=== PATIENT | female | born 1985 | race Caucasian/White ===

== ENCOUNTER 2023-10-15 18:07 | Emergency (ER) | payer OTHER ==
[~2023-10-15] VITALS: Ht 152.4 cm; Wt 167.7 kg
[2023-10-15 18:23] VITALS: TEMP 98
[2023-10-15] MEDS: MORPHINE 4 MG/ML 1ML VIAL IV ONE (19:58)
[2023-10-15] MEDS: MORPHINE 4 MG/ML 1ML VIAL IV PRN (20:53)
[2023-10-15] MEDS: PERCOCET 5MG/325MG TAB PO ONE (22:36)
[2023-10-15] MEDS ORDERED: PERC5TAB12 PO (23:52)
[2023-10-16] VITALS: BP 103/57; O2SAT 97
[2023-10-16] MEDS: OXYCODONE/APAP 5MG/325MG(HOME DOSE PACK) PO ONE (00:19)
[2023-10-20] MEDS ORDERED: LEVO100T5 PO (13:57)
[2023-10-20] MEDS ORDERED: THERTAB52 PO (13:57)
[2023-10-20] MEDS ORDERED: CALC500C16 PO (13:57)
[2023-10-20] MEDS ORDERED: SEMA2PEN SQ (14:00)
[2023-10-20] MEDS ORDERED: SUMA100T2 PO (14:03)
== END 2023-10-16 01:00 | disposition home or self-care (01) ==
LOC: M ED 18:07
DX: S42.352A Displaced comminuted fracture of shaft of humerus, left arm, initial encounter for closed fracture (principal); W18.2XXA Fall in (into) shower or empty bathtub, initial encounter; Z91.040 Latex allergy status; Z91.013 Allergy to seafood; Z88.8 Allergy status to other drugs, medicaments and biological substances; Z91.048 Other nonmedicinal substance allergy status; Z79.899 Other long term (current) drug therapy; Y92.002 Bathroom of unspecified non-institutional (private) residence as the place of occurrence of the external cause; Y93.89 Activity, other specified; Y99.9 Unspecified external cause status

== ENCOUNTER → 2023-10-19 | Outpatient (CLI) | payer OTHER ==
[~2023-10-19] MED LIST: CALC500C16 PO; LEVO100T5 PO; PERC5TAB12 PO; SEMA2PEN SQ; SUMA100T2 PO; THERTAB52 PO
== END ==
LOC: M SOG 07:51
PROVIDERS: ATTEND Orthopaedic Surgery
DX: M79.622 Pain in left upper arm (principal)

== ENCOUNTER → 2023-10-19 | Outpatient (CLI) | payer OTHER, MEDICAID ==
[~2023-10-19] MED LIST changes: +ALPR0.5T3 PO; +DESV50TA PO; +DEXM1CAP3 PO; +GABA-282 PO; +PERCOCET PO
[2023-10-19 12:39] LABS: BASO # 0.1 10^3/uL (0.0-0.2); BASO % 0.5 % (0.0-1.0); EOS # 0.2 10^3/uL (0.0-0.5); EOS % 1.5 % (0.0-3.0); HEMATOCRIT 45.4 % (36.0-47.0); HEMOGLOBIN 14.4 g/dl (12.0-15.5); LYMPH # 2.4 10^3/uL (1.5-5.0); LYMPH % 18.7 % (24.0-44.0); MEAN CORPUSCULAR HEMOGLOBIN 27.5 pg (27.0-33.0); MEAN CORPUSCULAR HGB CONC 31.7 g/dl (32.0-36.5); MEAN CORPUSCULAR VOLUME 86.6 fl (80.0-96.0); MONO # 0.7 10^3/uL (0.0-0.8); MONO % 5.5 % (2.0-8.0); NEUTROPHILS # 9.6 10^3/uL (1.5-8.5); NEUTROPHILS % 73.6 % (36.0-66.0); PLATELET COUNT, AUTOMATED 298 10^3/uL (150-450); RED BLOOD COUNT 5.24 10^6/uL (4.00-5.40)
[2023-10-19 12:57] LABS: INR 1.03; PROTHROMBIN TIME 13.2 SECONDS (12.5-14.5)
[2023-10-19 13:08] LABS: ALBUMIN 3.4 G/DL (3.2-5.2); ALKALINE PHOSPHATASE 160 U/L (46-116); ALT/SGPT 51 U/L (7.0-40); AST/SGOT 35 U/L (<34); BILIRUBIN,TOTAL 0.5 MG/DL (0.3-1.2); BLOOD UREA NITROGEN 10 MG/DL (9-23); CALCIUM LEVEL 8.9 MG/DL (8.5-10.1); CARBON DIOXIDE LEVEL 28 MMOL/L (20-31); CHLORIDE LEVEL 106 MMOL/L (98-107); GLOMERULAR FILTRATION RATE > 60.0 (>60); GLUCOSE, FASTING 112 MG/DL (60-100); POTASSIUM SERUM 4.1 MMOL/L (3.5-5.1); SODIUM LEVEL 136 MMOL/L (136-145); TOTAL PROTEIN 7.6 G/DL (5.7-8.2)
[2023-10-19 13:11] LABS: TOTAL 25(OH) VITAMIN D 25.7 NG/ML (20.0-100.0)
[2023-10-19 13:13] LABS: HEMOGLOBIN A1c 4.8 % (4.0-6.0)
== END ==
LOC: M PLALAB 10:35
PROVIDERS: ATTEND Orthopaedic Surgery
DX: S42.302A Unspecified fracture of shaft of humerus, left arm, initial encounter for closed fracture (principal); Y93.9 Activity, unspecified; Y92.9 Unspecified place or not applicable

== ENCOUNTER 2023-10-21 08:18 | Observation (INO) | payer OTHER, MEDICAID ==
[~2023-10-21] VITALS: Ht 152.4 cm; Wt 169.6 kg
[~2023-10-21 08:18] MED LIST changes: -ALPR0.5T3 PO; -DESV50TA PO; -DEXM1CAP3 PO; -GABA-282 PO; -PERCOCET PO
[2023-10-21] MEDS: MULTIVITAMINS/MINERALS THERAP 1 TAB PO SCH (09:00)
[2023-10-21] MEDS: SENOKOT S TAB PO SCH (09:00)
[2023-10-21] MEDS: MORPHINE 4 MG/ML 1ML VIAL IV ONE (10:10)
[2023-10-21] MEDS: ACETAMINOPHEN *IV* 1,000 MG in IV 1 EA IV ONE (10:11)
[2023-10-21 10:42] LABS: BASO # 0.1 10^3/uL (0.0-0.2); BASO % 0.6 % (0.0-1.0); EOS # 0.2 10^3/uL (0.0-0.5); EOS % 1.8 % (0.0-3.0); HEMOGLOBIN 13.9 g/dl (12.0-15.5); LYMPH % 19.6 % (24.0-44.0); MEAN CORPUSCULAR HEMOGLOBIN 27.9 pg (27.0-33.0); MEAN CORPUSCULAR HGB CONC 32.3 g/dl (32.0-36.5); MEAN CORPUSCULAR VOLUME 86.3 fl (80.0-96.0); MONO # 0.6 10^3/uL (0.0-0.8); MONO % 6.1 % (2.0-8.0); NEUTROPHILS # 7.3 10^3/uL (1.5-8.5); NEUTROPHILS % 71.2 % (36.0-66.0); PLATELET COUNT, AUTOMATED 271 10^3/uL (150-450); RED BLOOD COUNT 4.98 10^6/uL (4.00-5.40); WHITE BLOOD COUNT 10.3 10^3/uL (4.0-10.0)
[2023-10-21] MEDS ORDERED: DEXM1CAP3 PO (10:56)
[2023-10-21] MEDS ORDERED: DESV50TA PO (10:56)
[2023-10-21] MEDS ORDERED: PERCOCET PO (10:56)
[2023-10-21] MEDS ORDERED: ALPR0.5T3 PO (10:56)
[2023-10-21] MEDS ORDERED: GABA-1172 PO (10:56)
[2023-10-21] MEDS ORDERED: HOME MED LIST COMPLETE! XX SCH (11:00)
[2023-10-21 11:11] LABS: ALBUMIN 3.1 G/DL (3.2-5.2); ALKALINE PHOSPHATASE 147 U/L (46-116); ALT/SGPT 37 U/L (7.0-40); AST/SGOT 23 U/L (<34); BILIRUBIN,TOTAL 0.5 MG/DL (0.3-1.2); BLOOD UREA NITROGEN 12 MG/DL (9-23); CALCIUM LEVEL 8.3 MG/DL (8.5-10.1); CARBON DIOXIDE LEVEL 29 MMOL/L (20-31); CHLORIDE LEVEL 106 MMOL/L (98-107); CREATININE FOR GFR 0.61 MG/DL (0.55-1.30); GLOMERULAR FILTRATION RATE > 60.0 (>60); GLUCOSE, FASTING 97 MG/DL (60-100); MAGNESIUM LEVEL 1.9 MG/DL (1.8-2.4); POTASSIUM SERUM 4.2 MMOL/L (3.5-5.1); SODIUM LEVEL 138 MMOL/L (136-145); THYROID STIMULATING HORMONE 4.086 uIU/ML (0.55-4.78); TOTAL PROTEIN 6.9 G/DL (5.7-8.2)
[2023-10-21] MEDS ORDERED: SUMAtriptan SUCCINATE 25 MG TAB PO SCH (11:15)
[2023-10-21 11:26] LABS: INR 0.99; PARTIAL THROMBOPLASTIN TIME 28.3 SECONDS (24.8-34.2); PROTHROMBIN TIME 12.8 SECONDS (12.5-14.5)
[2023-10-21] MEDS: oxyCODONE 5MG TAB PO PRN (12:04)
[2023-10-21] MEDS: DESVENLAFAXINE ER 50MG TABLET (PRISTIQ) PO SCH (12:04)
[2023-10-21] MEDS: GABAPENTIN 300 MG CAP PO SCH ×2 (12:04→17:39)
[2023-10-21] MEDS: MORPHINE 2 MG/ML 1ML VIAL IV PRN (15:05)
[2023-10-21 15:25] VITALS: BP 134/76; TEMP 97.2; O2SAT 98
[2023-10-21 18:46] LABS: URINE PREG TEST NEGATIVE (NEGATIVE)
[2023-10-21] MEDS: ONDANSETRON 4MG 2ML VIAL IV PRN (19:13)
[2023-10-21 19:35] VITALS: BP 133/77; TEMP 97; O2SAT 99
[2023-10-22] VITALS (8 sets, daily range): BP systolic 125–134; BP diastolic 75–77; TEMP 97–97.4; O2SAT 96–99
[2023-10-22] MEDS: NS 1,000 ML IV SCH (01:51)
[2023-10-22] MEDS ORDERED: LEVOTHYROXINE 100MCG TABLET (0.1MG) PO SCH (06:00)
[2023-10-22] MEDS: LEVOTHYROXINE 100MCG TABLET (0.1MG) PO SCH (06:16)
[2023-10-22] MEDS: ACETAMINOPHEN TAB 650MG DOSE (2X325MG) PO ONE (08:04)
[2023-10-22 08:23] LABS: BASO % 0.4 % (0.0-1.0); EOS # 0.3 10^3/uL (0.0-0.5); EOS % 2.6 % (0.0-3.0); HEMATOCRIT 38.6 % (36.0-47.0); HEMOGLOBIN 12.3 g/dl (12.0-15.5); LYMPH # 2.5 10^3/uL (1.5-5.0); LYMPH % 25.7 % (24.0-44.0); MEAN CORPUSCULAR HEMOGLOBIN 27.5 pg (27.0-33.0); MEAN CORPUSCULAR HGB CONC 31.9 g/dl (32.0-36.5); MEAN CORPUSCULAR VOLUME 86.4 fl (80.0-96.0); MONO # 0.5 10^3/uL (0.0-0.8); MONO % 5.2 % (2.0-8.0); NEUTROPHILS # 6.3 10^3/uL (1.5-8.5); NEUTROPHILS % 65.8 % (36.0-66.0); PLATELET COUNT, AUTOMATED 253 10^3/uL (150-450); RED BLOOD COUNT 4.47 10^6/uL (4.00-5.40); WHITE BLOOD COUNT 9.6 10^3/uL (4.0-10.0)
[2023-10-22 08:44] LABS: BLOOD UREA NITROGEN 9 MG/DL (9-23); CALCIUM LEVEL 8.4 MG/DL (8.5-10.1); CARBON DIOXIDE LEVEL 29 MMOL/L (20-31); CHLORIDE LEVEL 106 MMOL/L (98-107); CREATININE FOR GFR 0.57 MG/DL (0.55-1.30); GLOMERULAR FILTRATION RATE > 60.0 (>60); GLUCOSE, FASTING 78 MG/DL (60-100); POTASSIUM SERUM 3.8 MMOL/L (3.5-5.1); SODIUM LEVEL 138 MMOL/L (136-145)
[2023-10-22] MEDS ORDERED: DEXMETHYLPHENIDATE 15 MG PO SCH (09:00)
[2023-10-22] MEDS ORDERED: fentaNYL 100 MCG/2 ML INJECTION ONE (10:36)
[2023-10-22] MEDS ORDERED: LIDOCAINE 2% 100MG/5ML SDV (FOR ANES.) ONE (10:36)
[2023-10-22] MEDS ORDERED: SUCCINYLCHOLINE 100MG/5ML SYRINGE ONE (10:36)
[2023-10-22] MEDS ORDERED: ROCURONIUM BROMIDE 50MG/5ML VIAL ONE ×3 (10:36→14:14)
[2023-10-22] MEDS ORDERED: propofoL 200 MG/20 ML VIAL ONE ×2 (10:36→13:36)
[2023-10-22] MEDS ORDERED: ACETAMINOPHEN 1000MG/100ML IV BAG ONE (10:37)
[2023-10-22] MEDS: EPINEPHrine INJ 1 MG/ML 1ML AMP PN ONE (11:45)
[2023-10-22] MEDS: ROPIvacaine 0.5% 30ML VIAL PN ONE (11:45)
[2023-10-22] MEDS: LIDOCAINE 1% SDV 5ML VIAL PN ONE (11:45)
[2023-10-22] MEDS: fentaNYL 100 MCG/2 ML INJECTION IV PRN ×2 (12:03→16:08)
[2023-10-22] MEDS: MIDAZOLAM INJ 2MG/2ML VIAL IV PRN (12:05)
[2023-10-22] MEDS: MIDAZOLAM INJ 2MG/2ML VIAL IV ONE (12:24)
[2023-10-22] MEDS ORDERED: KETAMINE HCL 200MG/20ML VIAL ONE (12:36)
[2023-10-22] MEDS: ceFAZolin 2 GM/D5W 50 ML IV BAG As Ordered ONE (13:00)
[2023-10-22] MEDS: ceFAZolin 1GM VIAL As Ordered ONE (13:00)
[2023-10-22] MEDS ORDERED: KETOROLAC 60MG 2ML VIAL ONE (14:33)
[2023-10-22] MEDS ORDERED: SUGAMMADEX SODIUM 500 MG/5 ML VIAL (BRIDION) ONE (14:33)
[2023-10-22] MEDS ORDERED: ONDANSETRON 4MG 2ML VIAL ONE (14:33)
[2023-10-22] MEDS: LR 1,000 ML IV SCH (15:10)
[2023-10-22] MEDS ORDERED: ONDANSETRON 4MG 2ML VIAL IV PRN (15:10)
[2023-10-22] MEDS ORDERED: MORPHINE 2 MG/ML 1ML VIAL IV PRN (15:20)
[2023-10-22] MEDS: HYDROMORPHONE HCL 0.5 MG/ 0.5 ML SYRINGE IV PRN (15:30)
[2023-10-22] MEDS: oxyCODONE 5MG TAB PO PRN (17:20)
[2023-10-22] MEDS: ceFAZolin SOD 2 GM in IV 1 EA IV SCH (20:31)
[2023-10-22] MEDS: ACETAMINOPHEN TAB 650MG DOSE (2X325MG) PO PRN (20:31)
[2023-10-22] MEDS: ALPRAZolam 0.5 MG TAB PO PRN (22:26)
[2023-10-23] MEDS: LIDOCAINE 5% (LIDODERM) PATCH TD SCH (00:25)
[2023-10-23] MEDS: METHOCARBAMOL 1,000 MG/10 ML VIAL IM ONE (00:58)
[2023-10-23] MEDS: KETOROLAC 60MG 2ML VIAL IM ONE (00:59)
[2023-10-23 02:50] VITALS: BP 132/74; TEMP 97; O2SAT 98
[2023-10-23 05:43] LABS: BASO % 0.3 % (0.0-1.0); EOS # 0.2 10^3/uL (0.0-0.5); HEMATOCRIT 34.9 % (36.0-47.0); HEMOGLOBIN 11.1 g/dl (12.0-15.5); LYMPH % 20.2 % (24.0-44.0); MEAN CORPUSCULAR HEMOGLOBIN 27.6 pg (27.0-33.0); MEAN CORPUSCULAR HGB CONC 31.8 g/dl (32.0-36.5); MEAN CORPUSCULAR VOLUME 86.8 fl (80.0-96.0); MONO # 0.7 10^3/uL (0.0-0.8); MONO % 6.7 % (2.0-8.0); NEUTROPHILS # 7.1 10^3/uL (1.5-8.5); NEUTROPHILS % 70.4 % (36.0-66.0); PLATELET COUNT, AUTOMATED 228 10^3/uL (150-450); RED BLOOD COUNT 4.02 10^6/uL (4.00-5.40); WHITE BLOOD COUNT 10.1 10^3/uL (4.0-10.0)
[2023-10-23 06:02] LABS: BLOOD UREA NITROGEN 8 MG/DL (9-23); CALCIUM LEVEL 7.8 MG/DL (8.5-10.1); CARBON DIOXIDE LEVEL 26 MMOL/L (20-31); CHLORIDE LEVEL 111 MMOL/L (98-107); CREATININE FOR GFR 0.52 MG/DL (0.55-1.30); GLOMERULAR FILTRATION RATE > 60.0 (>60); GLUCOSE, FASTING 108 MG/DL (60-100); POTASSIUM SERUM 3.9 MMOL/L (3.5-5.1); SODIUM LEVEL 141 MMOL/L (136-145)
[2023-10-23 08:00] VITALS: BP 133/85; TEMP 96.8; O2SAT 96
[2023-10-23] MEDS: methocarbamoL 500 MG TAB PO PRN (10:24)
[2023-10-23] MEDS: PERCOCET 5MG/325MG TAB PO PRN (10:26)
[2023-10-23 12:00] VITALS: BP 123/73; TEMP 97; O2SAT 96
[2023-10-23] MEDS: MULTIVITAMINS/MINERALS THERAP 1 TAB PO SCH (12:25)
[2023-10-23 20:00] VITALS: BP 119/70; TEMP 97.2; O2SAT 96
[2023-10-23] MEDS: CEFDINIR 300 MG CAP (OMNICEF) PO SCH (20:25)
[2023-10-24 04:00] VITALS: BP 120/71; TEMP 97.2; O2SAT 98
[2023-10-24 07:18] LABS: BASO # 0.1 10^3/uL (0.0-0.2); BASO % 0.6 % (0.0-1.0); EOS # 0.3 10^3/uL (0.0-0.5); HEMATOCRIT 35.2 % (36.0-47.0); HEMOGLOBIN 10.9 g/dl (12.0-15.5); LYMPH # 2.5 10^3/uL (1.5-5.0); LYMPH % 28.9 % (24.0-44.0); MEAN CORPUSCULAR HEMOGLOBIN 27.3 pg (27.0-33.0); MEAN CORPUSCULAR VOLUME 88.2 fl (80.0-96.0); MONO # 0.5 10^3/uL (0.0-0.8); MONO % 6.3 % (2.0-8.0); NEUTROPHILS # 5.1 10^3/uL (1.5-8.5); PLATELET COUNT, AUTOMATED 240 10^3/uL (150-450); RED BLOOD COUNT 3.99 10^6/uL (4.00-5.40); WHITE BLOOD COUNT 8.5 10^3/uL (4.0-10.0)
[2023-10-24 07:43] LABS: BLOOD UREA NITROGEN 10 MG/DL (9-23); CALCIUM LEVEL 7.9 MG/DL (8.5-10.1); CARBON DIOXIDE LEVEL 28 MMOL/L (20-31); CHLORIDE LEVEL 109 MMOL/L (98-107); CREATININE FOR GFR 0.59 MG/DL (0.55-1.30); GLOMERULAR FILTRATION RATE > 60.0 (>60); GLUCOSE, FASTING 93 MG/DL (60-100); SODIUM LEVEL 142 MMOL/L (136-145)
[2023-10-24 07:55] VITALS: BP 117/69; TEMP 97; O2SAT 96
[2023-10-24] MEDS: UNRESOLVED NON-FORMULARY MED ORDER XX SCH (08:11)
[2023-10-24 12:01] VITALS: BP 130/92; TEMP 97; O2SAT 96
[2023-10-24 20:00] VITALS: BP 127/76; TEMP 97.4; O2SAT 95
[2023-10-24] MEDS: RAMELTEON 8 MG TAB (ROZEREM) PO PRN (22:39)
[2023-10-25 04:24] VITALS: BP 104/68; TEMP 96.9; O2SAT 95
[2023-10-25 06:06] LABS: BASO % 0.3 % (0.0-1.0); EOS # 0.3 10^3/uL (0.0-0.5); EOS % 3.6 % (0.0-3.0); HEMATOCRIT 34.4 % (36.0-47.0); HEMOGLOBIN 11.1 g/dl (12.0-15.5); LYMPH # 2.4 10^3/uL (1.5-5.0); MEAN CORPUSCULAR HEMOGLOBIN 27.9 pg (27.0-33.0); MEAN CORPUSCULAR HGB CONC 32.3 g/dl (32.0-36.5); MEAN CORPUSCULAR VOLUME 86.4 fl (80.0-96.0); MONO # 0.5 10^3/uL (0.0-0.8); MONO % 5.7 % (2.0-8.0); NEUTROPHILS # 5.7 10^3/uL (1.5-8.5); NEUTROPHILS % 63.1 % (36.0-66.0); PLATELET COUNT, AUTOMATED 237 10^3/uL (150-450); RED BLOOD COUNT 3.98 10^6/uL (4.00-5.40)
[2023-10-25 06:27] LABS: BLOOD UREA NITROGEN 8 MG/DL (9-23); CALCIUM LEVEL 8.1 MG/DL (8.5-10.1); CARBON DIOXIDE LEVEL 28 MMOL/L (20-31); CHLORIDE LEVEL 109 MMOL/L (98-107); CREATININE FOR GFR 0.55 MG/DL (0.55-1.30); GLOMERULAR FILTRATION RATE > 60.0 (>60); GLUCOSE, FASTING 90 MG/DL (60-100); SODIUM LEVEL 140 MMOL/L (136-145)
[2023-10-25] MEDS: UNRESOLVED PATIENT OWN MED ORDER XX SCH (07:21)
[2023-10-25 12:00] VITALS: BP 99/64; TEMP 96.8; O2SAT 96
[2023-10-25] MEDS ORDERED: RAME8TAB2 PO (13:17)
[2023-10-25] MEDS ORDERED: LIDO5TD TD (13:17)
[2023-10-25] MEDS ORDERED: CEFD300CAP PO (13:17)
[2023-10-25] MEDS ORDERED: SENN-52 PO (13:17)
[2023-10-25] MEDS ORDERED: PERCOCET PO (13:17)
== END 2023-10-25 14:06 | disposition home or self-care (01) ==
LOC: M ED 08:18 → M ED INP 08:19 → UNDOADMOB 08:19 → M MSPAV 15:29
PROVIDERS: ADMIT Orthopaedic Surgery; ATTEND Internal Medicine
DX: S42.302A Unspecified fracture of shaft of humerus, left arm, initial encounter for closed fracture (principal); W18.2XXA Fall in (into) shower or empty bathtub, initial encounter; Y92.002 Bathroom of unspecified non-institutional (private) residence as the place of occurrence of the external cause; Y93.E1 Activity, personal bathing and showering; E03.9 Hypothyroidism, unspecified; G43.909 Migraine, unspecified, not intractable, without status migrainosus; Z98.84 Bariatric surgery status; K50.90 Crohn's disease, unspecified, without complications; Z91.040 Latex allergy status; Z91.013 Allergy to seafood; G47.33 Obstructive sleep apnea (adult) (pediatric); Z79.899 Other long term (current) drug therapy; Z88.5 Allergy status to narcotic agent; Z88.8 Allergy status to other drugs, medicaments and biological substances; Z86.73 Personal history of transient ischemic attack (TIA), and cerebral infarction without residual deficits; F41.9 Anxiety disorder, unspecified; F32.A Depression, unspecified; F43.10 Post-traumatic stress disorder, unspecified; E66.01 Morbid (severe) obesity due to excess calories
CPT/HCPCS: 24516; 36415; 64415; 71045; 73060; 76000; 80048; 80053; 83735; 84443; 84703; 85025; 85610; 85730; 86850; 86900; 86901; 93005; 96365; 96366; 96372; 96375; 96376; 97116; 97161; 97165; 97530; 97535; 99284; C1713; C1769; C9290; J0131; J0330; J0665; J0690; J0744; J1170; J1885; J2250; J2405; J2800; J3010

== ENCOUNTER → 2023-10-30 | Outpatient (CLI) | payer OTHER, MEDICAID ==
[~2023-10-30] MED LIST changes: +ALPR0.5T3 PO; +CEFD300CAP PO; +DESV50TA PO; +DEXM1CAP3 PO; +GABA-282 PO; +KETO10TAB PO; +LIDO5TD TD; +PERCOCET PO; +RAME8TAB2 PO; +SENN-52 PO
== END ==
LOC: M SOG 10:16
PROVIDERS: ATTEND Orthopaedic Surgery
DX: Z47.89 Encounter for other orthopedic aftercare (principal)

== ENCOUNTER 2023-11-05 08:05 | Emergency (ER) | payer OTHER, MEDICAID ==
[~2023-11-05] VITALS: Ht 162.6 cm; Wt 174.2 kg
[~2023-11-05 08:05] MED LIST changes: -KETO10TAB PO
[2023-11-05] MEDS: ACETAMINOPHEN *IV* 1,000 MG in IV 1 EA IV ONE (11:15)
[2023-11-05] MEDS: KETOROLAC 30 MG/ML 1ML VIAL IV ONE (11:16)
[2023-11-05 11:30] LABS: BASO % 0.5 % (0.0-1.0); EOS # 0.2 10^3/uL (0.0-0.5); EOS % 2.8 % (0.0-3.0); HEMATOCRIT 40.6 % (36.0-47.0); HEMOGLOBIN 13.2 g/dl (12.0-15.5); LYMPH # 2.6 10^3/uL (1.5-5.0); LYMPH % 30.7 % (24.0-44.0); MEAN CORPUSCULAR HEMOGLOBIN 27.8 pg (27.0-33.0); MEAN CORPUSCULAR HGB CONC 32.5 g/dl (32.0-36.5); MEAN CORPUSCULAR VOLUME 85.7 fl (80.0-96.0); MONO # 0.5 10^3/uL (0.0-0.8); MONO % 5.8 % (2.0-8.0); NEUTROPHILS # 5.1 10^3/uL (1.5-8.5); NEUTROPHILS % 59.8 % (36.0-66.0); PLATELET COUNT, AUTOMATED 258 10^3/uL (150-450); RED BLOOD COUNT 4.74 10^6/uL (4.00-5.40); WHITE BLOOD COUNT 8.6 10^3/uL (4.0-10.0)
[2023-11-05 11:34] LABS: ERYTHROCYTE SEDIMENTATION RATE 58 mm/hr (0-20)
[2023-11-05 12:00] LABS: BLOOD UREA NITROGEN 14 MG/DL (9-23); CALCIUM LEVEL 8.5 MG/DL (8.5-10.1); CARBON DIOXIDE LEVEL 28 MMOL/L (20-31); CHLORIDE LEVEL 106 MMOL/L (98-107); CREATININE FOR GFR 0.64 MG/DL (0.55-1.30); GLOMERULAR FILTRATION RATE > 60.0 (>60); GLUCOSE, FASTING 80 MG/DL (60-100); POTASSIUM SERUM 4.3 MMOL/L (3.5-5.1); SODIUM LEVEL 138 MMOL/L (136-145)
[2023-11-05] MEDS: fentaNYL 100 MCG/2 ML INJECTION IV ONE ×2 (13:25→16:09)
[2023-11-05] MEDS ORDERED: KETO10TAB PO (16:14)
[2023-11-05] MEDS ORDERED: PERC5TAB12 PO (16:14)
[2023-11-05 16:36] VITALS: BP 127/65; TEMP 97.1; O2SAT 98
== END 2023-11-05 16:37 | disposition home or self-care (01) ==
LOC: M ED 08:05
DX: G89.18 Other acute postprocedural pain (principal); M25.512 Pain in left shoulder; E03.9 Hypothyroidism, unspecified; Z86.79 Personal history of other diseases of the circulatory system; Z79.2 Long term (current) use of antibiotics; Z79.899 Other long term (current) drug therapy; Z91.013 Allergy to seafood; Z91.040 Latex allergy status; Z91.018 Allergy to other foods; Z91.048 Other nonmedicinal substance allergy status; Z88.8 Allergy status to other drugs, medicaments and biological substances
CPT/HCPCS: 73030; 73200; 80048; 85025; 85652; 86140; 93971; 96365; 96366; 96375; 96376; 99284; J0131; J1885; J3010

== ENCOUNTER → 2023-11-10 | Outpatient (CLI) | payer OTHER, MEDICAID ==
[~2023-11-10] MED LIST changes: +KETO10TAB PO
[2023-11-10 12:28] LABS: BASO # 0.1 10^3/uL (0.0-0.2); BASO % 0.6 % (0.0-1.0); EOS # 0.2 10^3/uL (0.0-0.5); EOS % 2.1 % (0.0-3.0); HEMATOCRIT 40.1 % (36.0-47.0); HEMOGLOBIN 12.9 g/dl (12.0-15.5); LYMPH # 2.2 10^3/uL (1.5-5.0); LYMPH % 24.1 % (24.0-44.0); MEAN CORPUSCULAR HEMOGLOBIN 27.7 pg (27.0-33.0); MEAN CORPUSCULAR HGB CONC 32.2 g/dl (32.0-36.5); MEAN CORPUSCULAR VOLUME 86.1 fl (80.0-96.0); MONO # 0.6 10^3/uL (0.0-0.8); MONO % 6.3 % (2.0-8.0); NEUTROPHILS # 6.1 10^3/uL (1.5-8.5); NEUTROPHILS % 66.6 % (36.0-66.0); PLATELET COUNT, AUTOMATED 273 10^3/uL (150-450); RED BLOOD COUNT 4.66 10^6/uL (4.00-5.40); WHITE BLOOD COUNT 9.1 10^3/uL (4.0-10.0)
[2023-11-10 12:52] LABS: ERYTHROCYTE SEDIMENTATION RATE 60 mm/hr (0-20)
== END ==
LOC: M LAB 11:17
PROVIDERS: ATTEND Orthopaedic Surgery
DX: S42.332D Displaced oblique fracture of shaft of humerus, left arm, subsequent encounter for fracture with routine healing (principal); E66.01 Morbid (severe) obesity due to excess calories

== ENCOUNTER → 2023-11-11 | Outpatient (CLI) | payer OTHER, MEDICAID | LOC: M SOG 07:22 | PROVIDERS: ATTEND Orthopaedic Surgery | DX: S42.332D Displaced oblique fracture of shaft of humerus, left arm, subsequent encounter for fracture with routine healing (principal) ==

== ENCOUNTER → 2023-11-13 | Outpatient (CLI) | payer OTHER, MEDICAID ==
[2023-11-13 11:17] LABS: BASO % 0.5 % (0.0-1.0); EOS # 0.2 10^3/uL (0.0-0.5); EOS % 2.7 % (0.0-3.0); HEMATOCRIT 39.7 % (36.0-47.0); HEMOGLOBIN 12.7 g/dl (12.0-15.5); LYMPH # 1.8 10^3/uL (1.5-5.0); MEAN CORPUSCULAR HEMOGLOBIN 27.7 pg (27.0-33.0); MEAN CORPUSCULAR VOLUME 86.7 fl (80.0-96.0); MONO # 0.6 10^3/uL (0.0-0.8); MONO % 7.9 % (2.0-8.0); NEUTROPHILS # 4.7 10^3/uL (1.5-8.5); NEUTROPHILS % 63.6 % (36.0-66.0); PLATELET COUNT, AUTOMATED 236 10^3/uL (150-450); RED BLOOD COUNT 4.58 10^6/uL (4.00-5.40); WHITE BLOOD COUNT 7.4 10^3/uL (4.0-10.0)
[2023-11-13 11:26] LABS: ERYTHROCYTE SEDIMENTATION RATE 43 mm/hr (0-20)
== END ==
LOC: M LAB 09:37
PROVIDERS: ATTEND Orthopaedic Surgery
DX: S42.332D Displaced oblique fracture of shaft of humerus, left arm, subsequent encounter for fracture with routine healing (principal); Y93.9 Activity, unspecified; Y92.9 Unspecified place or not applicable